=== PATIENT | female | born 1990 | race Caucasian/White ===

== ENCOUNTER 2017-01-18 09:08 | Emergency (ER) | payer BC ==
--- NOTE | 2017-01-18 09:22 | CPEKG ---
Heart Rate: 80 RR Interval: 750 P-R Interval: 140 QRSD Interval: 88 QT Interval: 388 QTC Interval: 448 P Pitman: 60 QRS Pitman: 51 T Wave Pitman: 24 EKG Severity - NORMAL ECG - EKG Impression: SINUS RHYTHM Electronically Signed By: Angela Martinez 19-Jan-2017 16:35:59
--- NOTE | 2017-01-18 09:33 | EDPHY ---
H & P Stated Complaint: 2 weeks l chest pain tingling in l arm Time Seen by Provider: 01/18/17 09:28 HPI/ROS: CHIEF COMPLAINT: Left-sided chest pain. HISTORY OF PRESENT ILLNESS: The patient is a 26-year-old female who presents with 2 weeks of left-sided chest pain. The pain is described as tightness and is sometimes worsened with breathing. It is constant. She denies alleviating factors. She admits associated tingling in her left axillary region and arm. The discomfort was associated with nausea yesterday. She denies recent sickness. No rhinorrhea, sore throat, cough. No fever, chills, shortness of breath, palpitations, vomiting, diarrhea, urinary complaints, headache, lightheadedness, abdominal pain, breast tenderness. She does have a history of anxiety and panic attacks but this feels different. LNMP 1 month ago. REVIEW OF SYSTEMS: Aside from elements discussed in the HPI, a comprehensive 10-point review of systems was reviewed and is negative. PAST MEDICAL HISTORY: Anxiety. No family history of blood clots. SOCIAL HISTORY: Nonsmoker, recently moved back to [place] from [place], no illicit drug use, recently . VITAL SIGNS: Reviewed by me GENERAL: Well-developed, well-nourished, resting comfortably in no respiratory distress. HEENT: Atraumatic. Eyes: No icterus, no injection. Mouth: moist mucous membranes. No erythema or lesions. Neck: supple with no adenopathy. LUNGS: Clear to auscultation bilaterally, no wheezes, rhonchi or rales. CARDIAC: Regular rate and rhythm, no rubs, murmurs or gallops. No palpable chest wall tenderness. ABDOMEN: Soft, nontender, nondistended, bowel sounds normal. BACK: No CVA tenderness. EXTREMITIES: No trauma. No edema. Range of motion is normal throughout. No lymphadenopathy in axilla. NEURO: Alert and oriented, grossly nonfocal. SKIN: Warm and dry, no rash. PSYCHIATRIC: Normal mentation, no agitation. Portions of this note were transcribed by a medical fee clerk. I personally performed a history, physical exam, medical decision making, and confirmed accuracy of information the transcribed note. Source: Patient Exam Limitations: No limitations - Personal History LMP (Females 10-55): 22-28 Days Ago Current Tetanus/Diphtheria Vaccine: Yes - Medical/Surgical History Hx Asthma: No Hx Chronic Respiratory Disease: No Hx Diabetes: No Hx Cardiac Disease: No Hx Renal Disease: No Hx Cirrhosis: No Hx Alcoholism: No Hx HIV/AIDS: No Hx Splenectomy or Spleen Trauma: No Other PMH: panic/anxiety - Social History Smoking Status: Never smoked Constitutional: Initial Vital Signs Temperature (C) 36.7 C 01/18/17 09:11 Heart Rate 84 01/18/17 09:11 Respiratory Rate 20 01/18/17 09:11 Blood Pressure 132/82 H 01/18/17 09:11 O2 Sat (%) 98 01/18/17 09:11 O2 Delivery Mode Room Air Allergies/Adverse Reactions: No Known Allergies Allergy (Unverified 01/18/17 09:10) Home Medications: Medication Instructions Recorded NK [No Known Home Meds] 01/18/17 Medical Decision Making - Diagnostics EKG Interpretation: 12-LEAD EKG: Please see the full report in [facility]. My interpretation: Normal sinus rhythm Imaging: X-ray chest was obtained. I viewed the images myself on the PACS system. The radiologist interpretation is: normal. I discussed the x-ray findings with the patient. ED Course/Re-evaluation: An IV was established and basic labs ordered including d-dimer. Chest x-ray and EKG ordered. DuoNeb treatment administered for breathing. 26-year-old female with chest tightness on the left side of her chest with radiation into the axilla for 2 weeks continuously. EKG is nonischemic. Troponin is negative. D-dimer is negative. Patient has no risk factors for pulmonary embolism. Chest x-ray is normal. On re-evaluation patient reports a history of breast cysts and is wondering if they may be contributing to her discomfort. We discussed at length the findings. She is comfortable being discharged to home with recommended nonsteroidal the medications as well as close follow up with her primary care physician Dr. Gamino. Differential Diagnosis: After history and physical examination, the differential for this patient's chest discomfort and chest tightness was considered, including but not limited to, myocardial ischemia, acute coronary syndrome, pulmonary embolus, chest wall pain, pleural inflammation and pulmonary infectious causes. - Data Points Laboratory Results: Laboratory Results 01/18/17 09:27 01/18/17 09:27 01/18/17 01/18/17 01/18/17 09:27 09:27 09:27 WBC RBC Hgb Hct MCV MCH MCHC RDW Plt Count MPV Neut % (Auto) Lymph % (Auto) [place] % (Auto) Eos % (Auto) Baso % (Auto) Nucleat RBC Rel Count Absolute Neuts (auto) Absolute Lymphs (auto) Absolute Monos (auto) Absolute Eos (auto) Absolute Basos (auto) Absolute Nucleated RBC Immature Gran % Immature Gran # D-Dimer < 0.27 ug/mLFEU ug/mLFEU (0.00-0.50) Sodium 143 mEq/L mEq/L (134-144) Potassium 3.5 mEq/L mEq/L (3.5-5.2) Chloride 108 mEq/L mEq/L (97-110) Carbon Dioxide 22 mEq/l mEq/l (22-31) Anion Gap 13 mEq/L mEq/L (8-16) BUN 13 mg/dL mg/dL (7-23) Creatinine 0.7 mg/dL mg/dL (0.6-1.0) Estimated GFR > 60 Glucose 87 mg/dL mg/dL (70-100) Calcium 9.6 mg/dL mg/dL (8.5-10.4) Troponin I < 0.012 ng/mL ng/mL (0-0.034) Beta HCG, Qual NEGATIVE 01/18/17 09:27 WBC 4.60 10^3/uL 10^3/uL (3.80-9.50) RBC 4.13 10^6/uL L 10^6/uL (4.18-5.33) Hgb 13.4 g/dL g/dL (12.6-16.3) Hct 38.8 % % (38.0-47.0) MCV 93.9 fL fL (81.5-99.8) MCH 32.4 pg pg (27.9-34.1) MCHC 34.5 g/dL g/dL (32.4-36.7) RDW 12.2 % % (11.5-15.2) Plt Count 281 10^3/uL 10^3/uL (150-400) MPV 10.0 fL fL (8.7-11.7) Neut % (Auto) 51.9 % % (39.3-74.2) Lymph % (Auto) 36.3 % % (15.0-45.0) [place] % (Auto) 8.9 % % (4.5-13.0) Eos % (Auto) 2.0 % % (0.6-7.6) Baso % (Auto) 0.7 % % (0.3-1.7) Nucleat RBC Rel Count 0.0 % % (0.0-0.2) Absolute Neuts (auto) 2.39 10^3/uL 10^3/uL (1.70-6.50) Absolute Lymphs (auto) 1.67 10^3/uL 10^3/uL (1.00-3.00) Absolute Monos (auto) 0.41 10^3/uL 10^3/uL (0.30-0.80) Absolute Eos (auto) 0.09 10^3/uL 10^3/uL (0.03-0.40) Absolute Basos (auto) 0.03 10^3/uL 10^3/uL (0.02-0.10) Absolute Nucleated RBC 0.00 10^3/uL 10^3/uL (0-0.01) Immature Gran % 0.2 % % (0.0-1.1) Immature Gran # 0.01 10^3/uL 10^3/uL (0.00-0.10) D-Dimer Sodium Potassium Chloride Carbon Dioxide Anion Gap BUN Creatinine Estimated GFR Glucose Calcium Troponin I Beta HCG, Qual Medications Given: Discontinued Medications Albuterol (Proventil Neb) 3 ml IH EDNOW ONE Stop: 01/18/17 11:16 Last Admin: 01/18/17 11:54 Dose: 3 ml Ibuprofen (Motrin) 600 mg PO EDNOW ONE Stop: 01/18/17 11:16 Last Admin: 01/18/17 11:55 Dose: 600 mg Departure - Departure Disposition: Home, Routine, Self-Care Clinical Impression: Chest tightness Chest pain Qualifiers: Chest pain type: unspecified Qualified Code(s): R07.9 - Chest pain, unspecified Condition: Good Instructions: Chest Pain (ED) Additional Instructions: I recommend Ibuprofen (Motrin,Advil) or Naproxen Sodium (Aleve) for pain and anti-inflammatory effects. You may take either one, but do not take both. Your dose is: Ibuprofen 600mg every 6-8 hours with food. OR Naproxen Sodium (Aleve) 220mg every 12 hours. Follow up with your primary care provider next week for continued symptoms. If you developed swelling in her upper extremity, worsening discomfort, palpitations, lightheadedness, nausea, vomiting, dizziness, fainting, or other concerns, please see care urgently. Return to the emergency department for any serious worsening of condition. Referrals: Laina Gamino MD [Primary Care Provider] - 1-2 days without fail Report Scribed for: Angela Martinez Report Scribed by: Dylan Morales Date of Report: 01/18/17 Time of Report: 09:29
[2017-01-18 09:54] LABS: % IMMATURE GRANULYOCYTES 0.2 % (0.0-1.1); ABSOLUTE IMMATURE GRANULOCYTES 0.01 10^3/uL (0.00-0.10); ADD DIFF? NO; ADD MORPH? NO; ADD SCAN? NO; ATYPICAL LYMPHOCYTE FLAG 70 (0-99); FRAGMENT RBC FLAG 0 (0-99); HEMATOCRIT 38.8 % (38.0-47.0); HEMOGLOBIN 13.4 g/dL (12.6-16.3); LEFT SHIFT FLG 0 (0-99); LIPEMIA HEMOLYSIS FLAG 90 (0-99); MEAN CELL HEMOGLOBIN 32.4 pg (27.9-34.1); MEAN CELL HEMOGLOBIN CONCENTR. 34.5 g/dL (32.4-36.7); MEAN CELL VOLUME 93.9 fL (81.5-99.8); PLATELET CLUMPS FLAG 0 (0-99); PLATELET COUNT 281 10^3/uL (150-400); RED BLOOD CELL COUNT 4.13 10^6/uL (4.18-5.33); RED CELL DISTRIBUTION WIDTH 12.2 % (11.5-15.2)
[2017-01-18 10:05] LABS: ANION GAP 13 mEq/L (8-16); CALCIUM 9.6 mg/dL (8.5-10.4); CARBON DIOXIDE 22 mEq/l (22-31); CHLORIDE 108 mEq/L (97-110); CREATININE 0.7 mg/dL (0.6-1.0); GLOMERULAR FILTRATION RATE > 60; GLUCOSE 87 mg/dL (70-100); POTASSIUM 3.5 mEq/L (3.5-5.2); SODIUM 143 mEq/L (134-144)
[2017-01-18 10:16] LABS: TROPONIN I < 0.012 ng/mL (0-0.034)
[2017-01-18] MEDS ORDERED: IBUPROFEN 600 MG TAB PO ONE (11:15)
[2017-01-18] MEDS ORDERED: ALBUTEROL 3 ML DEYVIAL IH ONE (11:15)
[2017-01-18 12:40] VITALS: BP 128/78; PULSE 70; RESP 14; TEMP 98.4; O2SAT 94
== END 2017-01-18 12:39 | disposition home or self-care (01) ==
DX: R07.89 Other chest pain (principal)